=== PATIENT | female | born 1990 | race American Indian/Alaskan Native ===

== ENCOUNTER 2021-12-23 07:07 | Emergency (ER) | payer OTHER, MEDICAID, SELFPAY ==
[2021-12-23 07:17] VITALS: BP 134/79; PULSE 98; RESP 22; TEMP 36.2; O2SAT 100; BMI 26.6
[2021-12-23 07:30] LABS: Basophils Absolute Auto 0 /uL (0-100); Basophils Percent Auto 0.7 % (0-2); Eosinophils Absolute Auto 0 /uL (0-450); Hematocrit 29.1 % (36-46); Hemoglobin 9.2 g/dL (12.0-16.0); Lymphocytes Absolute Auto 2500 /uL (1100-4500); Lymphocytes Percent Auto 37.6 % (25-40); Mean Corpuscular HGB Conc 31.7 % (30-36); Mean Corpuscular Hemoglobin 20.1 PG (26-34); Mean Corpuscular Volume 63.2 fL (80-100); Monocytes Absolute Auto 400 /uL (0-900); Monocytes Percent Auto 6.8 % (3-14); Neutrophils Absolute Auto 3600 /uL (1500-7000); Neutrophils Percent Auto 54.9 % (50-75); Platelet Count 258 X10^3/uL (150-400); Red Cell Distribution Width 18.5 % (11.6-14.8); White Blood Cell Count 6.5 X10^3/uL (4.5-11.0)
[2021-12-23 07:32] LABS: Add Manual Diff / Slide Review SLIDE REVIEW
[2021-12-23 07:38] LABS: Pregnancy Test Serum,Qual Negative (Negative)
[2021-12-23] MEDS: PANTOPRAZOLE 40 MG VIAL IV (07:38)
[2021-12-23] MEDS: SODIUM CHLORIDE 0.9% 1,000 ML 1000 ML IV (07:39)
[2021-12-23 07:40] LABS: Alanine Aminotransferase 40 IU/L (<35); Albumin 4.8 g/dL (3.5-5.0); Albumin Globulin Ratio 1.1 (1.0-2.8); Alkaline Phosphatase 105 U/L (38-126); Aspartate Aminotransferase 46 IU/L (14-36); BUN Creatinine Ratio 8.3 (6-22); Bilirubin Total 0.5 mg/dL (0.2-1.3); Blood Urea Nitrogen 5 mg/dL (7-17); Calcium 8.8 mg/dL (8.4-10.2); Carbon Dioxide 27 mmol/L (22-32); Chloride 101 mmol/L (98-107); Estimated Glomerular Filt Rate > 60 mL/min (>60); Globulin 4.2 g/dL (1.7-4.1); Glucose 131 mg/dL (70-100); HEMOLYSIS < 15 (0-50); Lipase 99 U/L (23-300); Sodium 141 mmol/L (137-145)
[2021-12-23] MEDS: ONDANSETRON 4 MG/2 ML INJ IV (07:40)
--- NOTE | 2021-12-23 07:53 | ED_ITS ---
HPI - Abdominal Pain General Chief Complaint: Abdominal Pain Stated Complaint: Abd pain Time Seen by Provider: 12/23/21 07:12 Source: EMS Mode of arrival: EMS History of Present Illness HPI narrative: Patient is a 31-year-old female who presents with vomiting. She states that she does drink alcohol it is difficult to quantify how much but she drinks whiskey she had a drink last night. She has been vomiting for an unknown number of day s. She currently cannot stop. She has some lower abdominal pain now. She says that she was putting some bright red blood but she had a formed nonbloody bowel movement this morning. She has not been vomiting blood. She admits to smoking marijuana. Apparently her sister was murdered and now she is raising her 4-year-old nephew, her is threatening to leave if she does not get her drinking under control. She checked herself into rehab she is supposed to show up today but was unable to stop vomiting. Related Data Previous Rx's Medication Instructions Recorded ondansetron 4 mg disintegrating 4 mg PO Q8H PRN nausea and 12/23/21 tablet vomiting #10 tabs potassium chloride 20 mEq 20 meq PO DAILY #3 tabs 12/23/21 tablet,extended release Allergies Allergy/AdvReac Type Severity Reaction Status Date / Time No Known Drug Allergies Allergy Verified 12/23/21 07:20 Review of Systems Review of Systems Narrative: GENERAL: Denies chills, fatigue, malaise, fever, sweats, travel HEENT: Denies sinus pain, ear pain, sore throat, difficulty swallowing, neck pain RESPIRATORY: Denies dyspnea, cough, wheezing, hemoptysis, sputum. CARDIOVASCULAR: Denies chest pain, palpitations, orthopnea, edema GASTROINTESTINAL: See HPI : Denies dysuria, frequency, incontinence, hematuria, urinary retention, flank pain. MUSCULOSKELETAL: Denies weakness, joint pain, or bony pain SKIN: No rash, no erythema, no pruritus NEUROLOGIC: Denies weakness, dizziness, headache, numbness, change in speech, confusion PSYCHIATRIC: No concerning psychosocial issues. 12 point review of systems is negative except for those stated above and HPI Patient History Social History Smoking Status: Current every day smoker Smoking Status: Current every day smoker alcohol intake frequency: 3 or more drinks per day Substance Use Type: does not use Exam Initial Vital Signs Initial Vital Signs: Vital Signs Temperature 97.2 F L 12/23/21 07:17 Pulse Rate 98 H 12/23/21 07:17 Respiratory Rate 22 12/23/21 07:17 Blood Pressure 134/79 12/23/21 07:17 Pulse Oximetry 100 12/23/21 07:17 Oxygen Delivery Method 12/23/21 07:17 GENERAL: Alert tearful anxious 31-year-old HEENT: Head atraumatic,EOMI, pupils reactive, face symmetric, [moist] mucous membranes CARDIOVASCULAR: Regular rate and rhythm without murmurs, rubs or gallops. RESPIRATORY: Breath sounds equal bilaterally, no wheezes rales or rhonchi. ABDOMEN: Soft, mild lower abdominal suprapubic tenderness no guarding no rebound no right upper quadrant pain no epigastric RECTAL: Nurse Rashida in room, rectal negative no gross blood, Hemoccult nega tive no hemorrhage EXTREMITIES: Normal range of motion, no clubbing or edema. Neurovascularly intact NEUROLOGICAL: Alert and oriented x4.Normal gait and speech. SKIN: Warm, dry, no laceration, no petechiae, no rashes or lesions. Course Orders Ordered: ED Orders 12/23/21 07:23 Complete Blood Count AUTO DIFF Stat Comprehensive Metabolic Panel Stat Lipase Stat Test Serum,Qual Stat 12/23/21 08:29 CT abdomen pelvis w con Stat Discontinued Medications Diazepam (Diazepam 10 Mg/2 Ml Syringe) 2 mg IV NOW ONE Stop: 12/23/21 07:43 Last Admin: 12/23/21 07:56 Dose: 2 mg Documented By: AMU Sodium Chloride (Normal Saline 0.9%) 1,000 mls @ 1,000 mls/hr IV BOLUS ONE Stop: 12/23/21 08:20 Last Infusion: 12/23/21 08:36 Dose: 0 mls/hr Documented By: Admin: 12/23/21 07:39 Dose: 1,000 mls/hr Documented By: AMU Sodium Chloride (Normal Saline 0.9%) 1,000 mls @ 1,000 mls/hr IV BOLUS ONE Stop: 12/23/21 08:25 Last Admin: 12/23/21 08:36 Dose: Not Given Documented By: AMU Ondansetron HCl (Ondansetron 4 Mg/2 Ml Inj) 4 mg IV NOW ONE Stop: 12/23/21 07:22 Last Admin: 12/23/21 07:40 Dose: 4 mg Documented By: DAVID Pantoprazole Sodium (Pantoprazole 40 Mg Vial) 40 mg IV NOW ONE Stop: 12/23/21 07:27 Last Admin: 12/23/21 07:38 Dose: 40 mg Documented By: AMU Vital Signs Vital signs: Vital Signs - 8 hr 12/23/21 07:17 12/23/21 10:01 Temperature 97.2 F L Pulse Rate 98 H 78 Respiratory Rate 22 18 Blood Pressure 134/79 114/72 Pulse Oximetry 100 100 Oxygen Delivery Method Room Air Room Air MDM - Abdominal Pain Lab Data Result diagrams: 12/23/21 07:23 12/23/21 07:23 Labs: Lab Results 12/23/21 12/23/21 12/23/21 Range/Units 07:23 07:23 07:23 WBC 6.5 (4.5-11.0) X10^3/uL RBC 4.60 (4.0-5.2) X10^6/uL Hgb 9.2 L (12.0-16.0) g/dL Hct 29.1 L (36-46) % MCV 63.2 L (80-100) fL MCH 20.1 L (26-34) PG MCHC 31.7 (30-36) % RDW 18.5 H (11.6-14.8) % Plt Count 258 (150-400) X10^3/uL Neut % (Auto) 54.9 (50-75) % Lymph % (Auto) 37.6 (25-40) % [place] % (Auto) 6.8 (3-14) % Eos % (Auto) 0.0 L (2-4) % Baso % (Auto) 0.7 (0-2) % Neut # (Auto) 3600 (5900-4339) /uL Lymph # (Auto) 2500 (7708-7538) /uL [place] # (Auto) 400 (0-900) /uL Eos # (Auto) 0 (0-450) /uL Baso # (Auto) 0 (0-100) /uL RBC Morphology See below Hypochromasia 1+ H Anisocytosis 1+ H Microcytosis 2+ H Target Cells 1+ H Sodium 141 (137-145) mmol/L Potassium 3.0 L (3.4-5.1) mmol/L Chloride 101 (98-107) mmol/L Carbon Dioxide 27 (22-32) mmol/L BUN 5 L (7-17) mg/dL Creatinine 0.60 (0.52-1.04) mg/dL Estimated GFR > 60 (>60) mL/min BUN/Creatinine Ratio 8.3 (6-22) Glucose 131 H (70-100) mg/dL Calcium 8.8 (8.4-10.2) mg/dL Total Bilirubin 0.5 (0.2-1.3) mg/dL AST 46 H (14-36) IU/L ALT 40 H (<35) IU/L Alkaline Phosphatase 105 (38-126) U/L Total Protein 9.0 H (6.3-8.2) g/dL Albumin 4.8 (3.5-5.0) g/dL Globulin 4.2 H (1.7-4.1) g/dL Albumin/Globulin Ratio 1.1 (1.0-2.8) Lipase 99 (23-300) U/L Serum , Qual Negative (Negative) Imaging Data CT scan - abdomen/pelvis: Radiologist's Impression: [place] [address] CT Scan Report Signed Patient: Adrienne Alfredo MR#: [id number] : 1990 Acct:[id number] Age/Sex: 31 / F Date of Service: 12/23/21 Loc: ED Accession Number: [id number] ?? Procedure: CT abdomen pelvis w con Ordering Provider: Ruby Rodriguez D.O. PROCEDURE:? CT ABDOMEN PELVIS W CON ? INDICATIONS:? vomiting, blood in stool, supra pubic pain ? TECHNIQUE:? After the administration of intravenous contrast, axial sections acquired from the lung bases to the pubic symphysis.? Coronal and sagittal reformats were performed.? For radiation dose reduction, the following was used:? automated exposure control, adjustment of mA and/or kV according to patient size.? ? COMPARISON:? None. ? FINDINGS:? Image quality:? Excellent.? ? Lung bases:? Unremarkable. Heart:? No significant findings. ? ABDOMEN: Liver:? Moderate hepatic steatosis is seen.? No discrete hepatic lesion. Gallbladder:? Multiple calcified stones are seen in dependent portion of gallbladder lumen.? No gallbladder wall thickening or pericholecystic fluid. Biliary ducts:? Unremarkable.? ? Pancreas:? Unremarkable.? ? Spleen:? Unremarkable.? ? Adrenal Glands:? No adrenal nodules. Kidneys and Ureters:? No stones or hydronephrosis.? No perinephric fat stranding or fluid. ? Stomach and Bowel:? There is no bowel obstruction.? No stomach or small bowel wall thickening.? Appendix is visualized and is within normal limits.? No definite colonic wall thickening or pericolonic fat stranding.? A few scattered sigmoid diverticuli are seen without sigmoid colon wall thickening or fat stranding.? No abscess collection. Peritoneum:? No abnormal intraperitoneal fluid.? No free air.? ? Ventral Wall: ? No hernias.? Abdominal Nodes:? No retroperitoneal or mesenteric adenopathy by size criteria.? Vessels:? Aorta and inferior vena cava are normal in size.? ? PELVIS: Pelvic Organs:? Uterus and bilateral adnexa show no gross abnormality. Bladder:? Unremarkable.? ? Pelvic Nodes: No enlarged lymph nodes.? Miscellaneous: No hernias are seen. ? ? ? Bones:? No suspicious bony lesion.? No vertebral body compression fracture. ? ? IMPRESSION: 1. No gross acute inflammatory process seen in abdomen or pelvis.? Normal appendix.? No definite abnormal bowel wall thickening or mesenteric fat stranding.? No free fluid or free air. 2. Hepatomegaly and moderate hepatic steatosis, no discrete hepatic lesion. 3.? Cholelithiasis without CT evidence of acute cholecystitis.? No biliary ductal dilatation.? ? ? Dictated by: Jey Stone M.D. on 12/23/2021 at 9:12 ?? MDM Narrative Medical decision making narrative: Patient really is an extremely poor historian. Difficult to quantify how much alcohol she is actually drinking. She apparently is going to rehab today. Difficult to tell how much bleeding she has had her guaiac today is negative. She is noted to be mildly anemic with a hemoglobin of 6.2 but an MCV of 63. So difficult to say if this is chronic versus acute. A CT today was negative. She is found to be mildly hypokalemic with a potassium of 3.0. At this time she feels ready and able to go home. She is tolerating water. She was given some Valium which she says she does not like how would making her feel but it has cer tainly helped calm her. Discharge Plan Departure Patient Disposition: Home Clinical Impression: Vomiting, Anemia, Acute hypokalemia Instructions: Anemia, DI for Vomiting -- Adult Activity Restrictions/Additional Instructions: *You have been diagnosed with vomiting *What to do: Difficult to tell why you have been vomiting. I am glad that you are feeling better. Please have your blood level checked along with her potassium level next week but primary care provider I do recommend taking a multi-vitamin it will likely help your and anemia. *Continue to take medications as directed A multivitamin daily Potassium 20 mEq once a day for 3 days Zofran 4 mg 8 hours if needed for nausea vomiting *Follow up with your primary care provider in 2-3 days or call [phone] *Return to ER if you should have persistent vomiting, frequent black or bright red stools, vomiting blood or any new, worsening or concerning symptoms Prescriptions: New ondansetron 4 mg tablet,disintegrating 4 mg PO Q8H PRN (Reason: nausea and vomiting) Qty: 10 0RF potassium chloride 20 mEq tablet extended release 20 meq PO DAILY Qty: 3 0RF Visit Report Forms: Patient Portal/API
[2021-12-23] MEDS: diazePAM 10 MG/2 ML SYRINGE 2 MG IV (07:56)
[2021-12-23 08:18] LABS: Anisocytosis 1+; Hypochromasia 1+; Microcytosis 2+; Target Cells 1+
--- NOTE | 2021-12-23 08:29 | DI.CT.S_ITS ---
PROCEDURE: CT ABDOMEN PELVIS W CON INDICATIONS: vomiting, blood in stool, supra pubic pain TECHNIQUE: After the administration of intravenous contrast, axial sections acquired from the lung bases to the pubic symphysis. Coronal and sagittal reformats were performed. For radiation dose reduction, the following was used: automated exposure control, adjustment of mA and/or kV according to patient size. COMPARISON: None. FINDINGS: Image quality: Excellent. Lung bases: Unremarkable. Heart: No significant findings. ABDOMEN: Liver: Moderate hepatic steatosis is seen. No discrete hepatic lesion. Gallbladder: Multiple calcified stones are seen in dependent portion of gallbladder lumen. No gallbladder wall thickening or pericholecystic fluid. Biliary ducts: Unremarkable. Pancreas: Unremarkable. Spleen: Unremarkable. Adrenal Glands: No adrenal nodules. Kidneys and Ureters: No stones or hydronephrosis. No perinephric fat stranding or fluid. Stomach and Bowel: There is no bowel obstruction. No stomach or small bowel wall thickening. Appendix is visualized and is within normal limits. No definite colonic wall thickening or pericolonic fat stranding. A few scattered sigmoid diverticuli are seen without sigmoid colon wall thickening or fat stranding. No abscess collection. Peritoneum: No abnormal intraperitoneal fluid. No free air. Ventral Wall: No hernias. Abdominal Nodes: No retroperitoneal or mesenteric adenopathy by size criteria. Vessels: Aorta and inferior vena cava are normal in size. PELVIS: Pelvic Organs: Uterus and bilateral adnexa show no gross abnormality. Bladder: Unremarkable. Pelvic Nodes: No enlarged lymph nodes. Miscellaneous: No hernias are seen. Bones: No suspicious bony lesion. No vertebral body compression fracture. IMPRESSION: 1. No gross acute inflammatory process seen in abdomen or pelvis. Normal appendix. No definite abnormal bowel wall thickening or mesenteric fat stranding. No free fluid or free air. 2. Hepatomegaly and moderate hepatic steatosis, no discrete hepatic lesion. 3. Cholelithiasis without CT evidence of acute cholecystitis. No biliary ductal dilatation. Dictated by: Jey Stone M.D. on 12/23/2021 at 9:12 Approved by: Jey Stone M.D. on 12/23/2021 at 9:20
--- NOTE | 2021-12-23 09:54 | PC.NURSE ---
Pt passed PO challenge
[2021-12-23 10:01] VITALS: BP 114/72; PULSE 78; RESP 18; O2SAT 100
== END 2021-12-23 10:02 | disposition home or self-care (01) ==
PROVIDERS: Emergency Provider Emergency Medicine
DX: R11.10 Vomiting, unspecified (principal); D64.9 Anemia, unspecified; E87.6 Hypokalemia
CPT/HCPCS: 36415; 74177; 80053; 83690; 84703; 85025; 96361; 96374; 96375; 99284; C9113; J2405; J3360